=== PATIENT | male | born 1980 | race African-American/Black ===

== ENCOUNTER 2021-09-28 18:34 | Emergency (ER) | payer MEDICAID, OTHER ==
[~2021-09-28] VITALS: Ht 175.3 cm; Wt 106.0 kg
[2021-09-28 18:41] VITALS: BP 123/78
== END 2021-09-28 21:49 | disposition left against medical advice (07) ==
LOC: ER 18:34
DX: Z53.21 Procedure and treatment not carried out due to patient leaving prior to being seen by health care provider (principal)